=== PATIENT | male | born 1990 | race Caucasian/White ===

== ENCOUNTER 2016-11-22 19:14 | Emergency (ER) | payer SELFPAY ==
[~2016-11-22] VITALS: Ht 177.8 cm; Wt 91.0 kg
[~2016-11-22 19:14] MED LIST: POTA10SO12 PO; PRED20 PO
[2016-11-22 19:18] VITALS: BP 137/84; PULSE 103; RESP 18; TEMP 98.9; O2SAT 98
[2016-11-22] MEDS ORDERED: LORazepam 0.5 MG TAB PO ONE (19:30)
[2016-11-22 20:14] LABS: ANION GAP 13 MEQ/L (5-15); AST (GOT) 29 U/L (15-37); BICARBONATE 22.6 MEQ/L (21.0-32.0); BLOOD UREA NITROGEN 14 MG/DL (7-18); CHLORIDE 102 MEQ/L (98-107); GLOMERULAR FILTRATION RATE 67 ML/MIN (>89); SODIUM (NA) 138 MEQ/L (136-145)
[2016-11-22 20:15] LABS: POTASSIUM 3.4 MEQ/L (3.5-5.1)
[2016-11-22 20:19] LABS: ALKALINE PHOSPHATASE 89 U/L (45-117); ALT (GPT) 54 U/L (12-78); TOTAL BILIRUBIN ADULT 0.5 MG/DL (0.2-1.0)
--- NOTE | 2016-11-22 20:29 | RADRPT ---
EXAM DATE/TIME: 11/22/2016 19:57 [place] COMPARISON: No previous studies available for comparison. INDICATIONS : Whole body numbness. MEDICAL HISTORY : None. SURGICAL HISTORY : None. ENCOUNTER: Initial ACUITY: 1 day PAIN SCORE: 0/10 LOCATION: Bilateral chest FINDINGS: PA and lateral views of the chest demonstrate the lungs to be symmetrically aerated without evidence of mass, infiltrate or effusion. The cardiomediastinal contours are unremarkable. Osseous structure s are intact. CONCLUSION: No acute disease. Dawood Elias MD on November 22, 2016 at 20:28 Board Certified Radiologist. This report was verified electronically.
--- NOTE | 2016-11-22 21:15 | PD ---
HPI Chief Complaint: Numbness/Tingling Time Seen by Provider: 19:25 Travel History International Travel<30 days: No Contact w/Intl Traveler<30days: No Traveled to known affect area: No History of Present Illness HPI Patient is a 26-year-old male with no medical history who comes in complaining of an episode of throat tightness and shakiness. He says that he was on his way home from work when he suddenly felt like he needed to get some air, he felt like his throat was tight and his hands started shaking. He says he feels tingling all over. He says he started breathing very fast. He says this happened once before, and he thought it was a panic attack. He denies any chest pain. He says he has been feeling well otherwise. He denies fever or chills. He denies any difficulty swallowing. [facility] Past Medical History Medical History: Denies Significant Hx Developmental Delay: Yes Diminished Hearing: No Immunizations Current: Yes Past Surgical History Surgical History: No Previous Surgery Social History Alcohol Use: No Tobacco Use: No Substance Use: No Allergies-Medications (Allergen,Severity, Reaction): Coded Allergies: No Known Allergies (Unverified , 11/22/16) Reported Meds & Prescriptions Reported Meds & Active Scripts Active No Active Prescriptions or Reported Medications Review of Systems Except as stated in HPI: all other systems reviewed are Neg General / Constitutional: No: Fever, Chills Eyes: No: Blurred Vision HENT: Positive: Lightheadedness, No: Headaches, Sore Throat Cardiovascular: No: Chest Pain or Discomfort Respiratory: No: Shortness of Breath Gastrointestinal: No: Nausea, Vomiting Musculoskeletal: No: Myalgias Neurologic: Positive: Paresthesia, No: Weakness, Dizziness Physical Exam Narrative GENERAL: Awake and alert, appears anxious. SKIN: Warm and dry. HEAD: Atraumatic. Normocephalic. EYES: Pupils equal and round. No scleral icterus. ENT: Mucous membranes pink and moist. No pharyngeal swelling. No uvular swelling. NECK: Trachea midline. No JVD. CARDIOVASCULAR: Regular rate and rhythm. No murmur appreciated. RESPIRATORY: No accessory muscle use. Clear to auscultation. Breath sounds equal bilaterally. GASTROINTESTINAL: Abdomen soft, non-tender, nondistended. MUSCULOSKELETAL: No obvious deformities. No clubbing. No cyanosis. No edema. NEUROLOGICAL: Awake and alert. No obvious cranial nerve deficits. Motor grossly within normal limits. Normal speech. PSYCHIATRIC: Appropriate mood and affect; insight and judgment normal. Data Data Last Documented VS Vital Signs Date Time Temp Pulse Resp B/P Pulse Ox O2 Delivery O2 Flow Rate FiO2 11/22/16 19:18 98.9 103 18 137/84 98 Orders Complete Blood Count With Diff (11/22/16 19:28) Comprehensive Metabolic Panel (11/22/16 19:28) Troponin I (11/22/16 19:28) D-Dimer (11/22/16 19:28) Lorazepam (Ativan) (11/22/16 19:30) Chest, Pa & Lat (11/22/16 ) Labs Laboratory Tests Test 11/22/16 19:20 D-Dimer Quantitative (PE/DVT) LESS THAN 0.19 MG/L FEU Sodium Level 138 MEQ/L Potassium Level 3.4 MEQ/L Chloride Level 102 MEQ/L Carbon Dioxide Level 22.6 MEQ/L Anion Gap 13 MEQ/L Blood Urea Nitrogen 14 MG/DL Creatinine 1.30 MG/DL Estimat Glomerular Filtration 67 ML/MIN Rate Random Glucose 121 MG/DL Calcium Level 8.8 MG/DL Total Bilirubin 0.5 MG/DL Aspartate Amino Transf 29 U/L (AST/SGOT) Alanine Aminotransferase 54 U/L (ALT/SGPT) Alkaline Phosphatase 89 U/L Troponin I LESS THAN 0.02 NG/ML Total Protein 8.0 GM/DL Albumin 4.3 GM/DL MDM Medical Decision Making Medical Screen Exam Complete: Yes Emergency Medical Condition: Yes Medical Record Reviewed: Yes Interpretation(s) ECG shows sinus tachycardia at 100, no ST elevation or depression. Differential Diagnosis Anxiety versus panic attack versus electrolyte abnormality versus URI versus pharyngitis Narrative Course Patient is a 26-year-old male who comes in complaining of tightness in his throat and a sensation of paresthesias and shakiness. Exam shows patient is anxious and appears to be hyperventilating slightly. IV established, patient connected to the cardiac cath tech. Labs sent including d-dimer are negative. His family says that a family member suddenly 2 weeks ago and ever and seems to be little anxious. Given small dose of Ativan. He seems to be feeling better. We'll be discharged home to follow-up with his doctor. Diagnosis Primary Impression: Anxiety Patient Instructions: Anxiety (ED), General Instructions Additional Instructions: Follow up with your doctor. Return to the ED as needed for any worsening symptoms. Scripts No Active Prescriptions or Reported Meds Disposition: 01 DISCHARGE HOME Condition: Stable Deysi Pedro MD Nov 22, 2016 21:15
[2016-11-22 21:21] LABS: AUTOMATED NEUTROPHIL # 7.4 TH/MM3 (1.8-7.7); BASOPHIL # 0.1 TH/MM3 (0-0.2); BASOPHIL % 0.7 % (0.0-2.0); EOSINOPHIL # 0.1 TH/MM3 (0-0.4); EOSINOPHIL % 1.2 % (0.0-4.0); HEMATOCRIT 42.4 % (39.0-51.0); HEMO FLAGS DIFF FINAL; LYMPH % 33.6 % (9.0-44.0); LYMPHOCYTE # 4.2 TH/MM3 (1.0-4.8); MEAN CELL VOLUME 87.2 FL (80.0-100.0); MEAN CORPUSCULAR HGB CONC 34.4 % (32.0-36.0); MONO % 5.3 % (0.0-8.0); NEUT % 59.2 % (16.0-70.0); PLATELET COUNT 271 TH/MM3 (150-450); RED BLOOD COUNT 4.86 MIL/MM3 (4.50-5.90); RED CELL DISTRIBUTION WIDTH 12.8 % (11.6-17.2); WHITE BLOOD COUNT 12.4 TH/MM3 (4.0-11.0)
--- NOTE | 2016-11-23 14:14 | EKG ---
Date Performed: 11/22/2016 Time Performed: 19:24:23 PTAGE: 26 years EKG: SINUS TACHYCARDIA ABNORMAL RHYTHM ECG NO PREVIOUS TRACING DOCTOR: Luis Powell Interpretating Date/Time 11/23/2016 14:10:50
== END 2016-11-22 21:52 | disposition home or self-care (01) ==
LOC: NEPE 19:14
DX: F41.9 Anxiety disorder, unspecified (principal); R00.0 Tachycardia, unspecified
CPT/HCPCS: 71020; 80053; 84484; 85025; 85379; 93005

== ENCOUNTER 2017-09-29 02:35 | Emergency (ER) | payer SELFPAY ==
[~2017-09-29] VITALS: Ht 182.9 cm; Wt 92.0 kg
[2017-09-29 02:37] VITALS: BP 170/98; PULSE 91; RESP 18; TEMP 98.9; O2SAT 98
[2017-09-29] MEDS ORDERED: ALPR.5 PO (02:48)
[2017-09-29] MEDS ORDERED: PRED20 PO (02:57)
--- NOTE | 2017-09-29 02:57 | PD ---
HPI Chief Complaint: Skin Problem Time Seen by Provider: 02:47 Travel History International Travel<30 days: No Contact w/Intl Traveler<30days: No Traveled to known affect area: No History of Present Illness HPI 27-year-old male complains of rash for about 6 hours. He has had intermittent similar rash for a couple of weeks. He recently finished a Solu-Medrol Dosepak. He evidently has planned follow-up with diesel tractor engine mechanic he has no shortness of breath no nausea and no chest pain no numbness tingling or weakness. He is unaware of any potential allergen exposure. He notes ingested Tylenol and ibuprofen earlier today however has never had a similar response to either. Onset gradual. Timing,. Severity mild. He took Benadryl around 10 PM, 5 hours prior to ER arrival which conferred minimal if any benefit. PFSH Past Medical History Developmental Delay: Yes Diminished Hearing: No Immunizations Current: Yes Tetanus Vaccination: Unknown Influenza Vaccination: No Social History Alcohol Use: No Tobacco Use: No Substance Use: No Allergies-Medications (Allergen,Severity, Reaction): Coded Allergies: No Known Allergies (Unverified Adverse Reaction, Unknown, 09/29/17) Reported Meds & Prescriptions Reported Meds & Active Scripts Active Prednisone 20 Mg Tab 20 Mg PO DAILY 3 Days Take 40 mg (2 tablets) daily for 5 days Reported Xanax (Alprazolam) 0.5 Mg Tab 0.5 Mg PO Q8H PRN Review of Systems Except as stated in HPI: all other systems reviewed are Neg General / Constitutional: No: Fever Cardiovascular: No: Chest Pain or Discomfort Skin: Positive Lesions Physical Exam Narrative GENERAL: 27-year-old male well-nourished well-developed no acute distress SKIN: Warm and dry. Blanching around maculopapular lesions on which are confluent throughout the trunk and extremities. There is some involvement about the face however the lips and oral pharyngeal mucosa appear normal. HEAD: Atraumatic. Normocephalic. EYES: Pupils equal and round. No scleral icterus. No injection or drainage. ENT: No nasal bleeding or discharge. Mucous membranes pink and moist. Posterior oropharynx widely patent. NECK: Trachea midline. No JVD. CARDIOVASCULAR: Regular rate and rhythm. RESPIRATORY: No accessory muscle use. Clear to auscultation. Breath sounds equal bilaterally. GASTROINTESTINAL: Abdomen soft, non-tender, nondistended. Hepatic and splenic margins not palpable. MUSCULOSKELETAL: Extremities without clubbing, cyanosis, or edema. No obvious deformities. NEUROLOGICAL: Awake and alert. No obvious cranial nerve deficits. Motor grossly within normal limits. Five out of 5 muscle strength in the arms and legs. Normal speech. PSYCHIATRIC: Appropriate mood and affect; insight and judgment normal. Data Data Last Documented VS Vital Signs Date Time Temp Pulse Resp B/P (MAP) Pulse Ox O2 Delivery O2 Flow Rate FiO2 09/29/17 02:37 98.9 91 18 170/98 (122) 98 Room Air Vital signs reviewed Orders Orders Ecg Monitoring (09/29/17 02:47) Iv Access Insert/Monitor (09/29/17 02:47) Oximetry (09/29/17 02:47) Diphenhydramine Inj (Benadryl Inj) (09/29/17 03:00) Methylprednisolone So Succ Inj (Solumedr (09/29/17 03:00) Famotidine Inj (Pepcid Inj) (09/29/17 03:00) Sodium Chloride 0.9% Flush (Ns Flush) (09/29/17 03:00) MDM Medical Decision Making Medical Screen Exam Complete: Yes Emergency Medical Condition: Yes Medical Record Reviewed: Yes Differential Diagnosis anaphylaxis, angioedema, cellulitis Narrative Course The presentation is consistent with an allergic reaction presenting today is urticaria. The patient had a normal anticipated response to Benadryl Pepcid and Solu-Medrol. Prednisone prescription. Follow-up with diesel tractor engine mechanic as planned in conversation with mother. The patient is resting comfortably and feels better, is alert and in no distress. The patients results and examination findings were discussed. The repeat examination is unremarkable and benign. The history, exam, diagnostic testing, and current condition do not suggest any significant pathology to warrant further testing, continued ED treatment, admission, or surgical evaluation at this point. The vital signs have been stable. The patient does not have uncontrollable pain, intractable vomiting, or other significant symptoms. The patient's condition is stable and appropriate for discharge. The patient will pursue further outpatient evaluation with a primary care physician or other designated or consulting physician as indicated in the discharge instructions. The patient expressed understanding and was agreeable with this plan. Diagnosis Primary Impression: Urticaria Referrals: Primary Care Physician 2 days Additional Instructions: You have a choice when it comes to health care, and we are glad that you chose [facility]. Hopefully, we have met your expectations on today's visit. You are welcome to return to [facility] at any time, as we are committed to meeting the health care needs of our community. Med/Other Pt SpecificInfo: Prescription(s) given Scripts Prednisone (Prednisone) 20 Mg Tab 20 MG PO DAILY for 3 Days, #3 TAB 0 Refills Take 40 mg (2 tablets) daily for 5 days Prov: Rashard Wood MD 09/29/17 Disposition: 01 DISCHARGE HOME Condition: Stable Rashard Wood MD Sep 29, 2017 02:57
[2017-09-29] MEDS ORDERED: methylPREDNISolone SOD SUCC 125 MG/2 ML VIAL IV PUSH ONE (03:00)
[2017-09-29] MEDS ORDERED: diphenhydrAMINE HCL 50 MG/ML VIAL IVP ONE (03:00)
[2017-09-29] MEDS ORDERED: FAMOTIDINE 20 MG/2 ML VIAL IV PUSH ONE (03:00)
[2017-09-29] MEDS ORDERED: SODIUM CHLORIDE 0.9% FLUSH 10 ML FLUSH IV FLUSH PRN (03:00)
[2017-09-29 03:49] VITALS: BP 154/96
== END 2017-09-29 03:56 | disposition home or self-care (01) ==
LOC: NEPC 02:35
DX: L50.9 Urticaria, unspecified (principal)
CPT/HCPCS: 96374; 96375; 99284; J1200; J2930